=== PATIENT | female | born 1995 | race Caucasian/White ===

== ENCOUNTER → 2020-03-01 11:54 | Outpatient (BNVA) | payer MEDICAID, SELFPAY | PROVIDERS: Family Provider Family Medicine; PCP Family Medicine; Visit Provider Nurse Practitioner Family | DX: M79.642 Pain in left hand (principal) | CPT/HCPCS: 73130 ==

== ENCOUNTER → 2021-08-10 11:30 | Outpatient (BNVA) | payer MEDICAID, SELFPAY | PROVIDERS: Family Provider Family Medicine; PCP Family Medicine; Visit Provider Nurse Practitioner Family | DX: Z20.822 Contact with and (suspected) exposure to COVID-19 (principal) | CPT/HCPCS: 87635 ==

== ENCOUNTER → 2023-05-13 15:38 | Outpatient (BNVA) | payer OTHER, MEDICAID, SELFPAY | PROVIDERS: Family Provider Family Medicine; PCP Family Medicine; Visit Provider Emergency Medicine | DX: M25.532 Pain in left wrist (principal); X50.0XXA Overexertion from strenuous movement or load, initial encounter; Y99.0 Civilian activity done for income or pay | CPT/HCPCS: 73110 ==

== ENCOUNTER 2023-11-23 00:44 | Inpatient (IN) | payer BC, SELFPAY ==
[2023-11-23 00:45] VITALS: BP 117/91; PULSE 77; RESP 16; TEMP 36.4; O2SAT 99; BMI 31.8
--- NOTE | 2023-11-23 01:04 | ED.C_ITS ---
HPI - Psych 2 General: Chief Complaint: Psychiatric Symptoms Stated Complaint: DEPRESSION Time Seen by Provider: 11/23/23 00:49 Source: patient and EMS Mode of arrival: EMS Limitations: no limitations History of Present Illness: 28-year-old female states she is feeling a lot of stressors with her at work states she has had severe depression from this she denies any suicidal ideations but states that she needs to get some help due to her severe depression. Associated symptoms: Reports depression; Deny homicidal ideation or suicidal ideation Review of Systems 2 Const: Denies: fever(s), chills, body aches or change in appetite ENMT: Denies: throat pain or dental pain Card: Denies: chest pain Resp: Denies: dyspnea GI: Denies: abdominal pain, nausea, vomiting or diarrhea Musc: Denies: neck pain or back pain Skin/Breast: Denies: rash Neuro: Denies: headache(s) Psych: Reports: depression; Denies: suicidal ideation or homicidal ideation [facility] ED 2 Female Reproductive History: Date of last menstrual period: 11/08/23 S pontaneous abortions: No Physical Exam 2 Const: COMMON NORMALS: no acute distress, patient oriented x3 and healthy appearing HENMT: COMMON NORMALS: normocephalic and atraumatic HEAD & SCALP: n ormocephalic and atraumatic Neck/C-Spine: COMMON NORMALS: full ROM and supple Chest: COMMONS NORMALS: normal inspection of the chest Resp: COMMON NORMALS: normal respiratory effort Extremity: COMMON NORMALS: normal to inspection and full ROM Neuro: COMMON NORMALS: patient oriented x3, moves all extremities and no focal motor deficits Psych: COMMON NORMALS: mental status grossly normal, Normal thought process present and cooperative MOOD & AFFECT: Yes depressed mood THOUGHT PROCESS: Normal thought process present Skin: COMMON NORMALS: no rashes or lesions noted and no wounds GENERAL SKIN EXAM: no rashes or lesions noted Course 2 Vital Signs: Vital signs: Vital Signs Temperature 97.5 F L 11/23/23 00:45 Pulse Rate 77 11/23/23 00:45 Respiratory Rate 16 11/23/23 00:45 Blood Pressure 117/91 11/23/23 00:45 Pulse Oximetry 99 11/23/23 00:45 Oxygen Delivery Me thod Room Air 11/23/23 00:45 MDM - Psych Medical Decision Making Patient presents for severe depression she has no SI or HI but voluntarily wants to be admitted to the [facility] to get some help spoke to the psychiatry she is medically cleared will admit at this time Medical Records I reviewed the patient's medical records. Lab Data I reviewed the patient's lab results. 11/23/23 01:31 11/23/23 01:31 Laboratory Results WBC 9.83 10^3/uL (3.29-11.43) 11/23/23 01:31 RBC 4.53 10^6/uL (3.85-5.65) 11/23/23 01:31 Hgb 13.60 g/dL (11.27-16.99) 11/23/23 01:31 Hct 39.7 % (36-47) 11/23/23 01:31 MCV 87.6 fl (85-98) 11/23/23 01:31 MCH 30.0 pg (27-33) 11/23/23 01: MCHC 34.3 g/dL (30-55) 11/23/23 01:31 RDW 13.1 % (12.1-15.1) 11/23/23 01:31 Plt Count 266 10^3/cmm (157-399) 11/23/23 01:31 MPV 8.3 fL (7.4-10.4) 11/23/23 01:31 Neut % (Auto) 61.8 % 11/23/23 01: Lymph % (Auto) 28.4 % 11/23/23 01:31 [place] % (Auto) 7.8 % 11/23/23 01: Eos % (Auto) 1.7 % 11/23/23 01:31 Baso % (Auto) 0.1 % 11/23/23 01:31 Neut # (Auto) 6.07 10^3/uL (1.8-7.7) 11/23/23 01:31 Lymph # (Auto) 2.8 10^3/uL (0.8-4.8) 11/23/23 01:31 [place] # (Auto) 0.8 10^3/uL (0.2-0.9) 11/23/23 01:31 Eos # (Auto) 0.2 10^3/uL (0.0-0.8) 11/23/23 01:31 Baso # (Auto) 0.0 10^3/uL (0.0-0.1) 11/23/23 01:31 Nucleated RBC % (auto) 0 % 11/23/23 01:31 Nucleated RBCs # 0.0 /100WBC 11/23/23 01:31 Sodium 144 mmol/L (136-145) 11/23/23 01:31 Potassium 3.5 mmol/L (3.5-5.1) 11/23/23 01:31 Chloride 109 mmol/L (98-107) H 11/23/23 01:31 Carbon Dioxide 25 mmol/L (22-29) 11/23/23 01:31 Anion Gap 13.5 (5-19) 11/23/23 01:31 BUN 12 mg/dL (6-20) 11/23/23 01:31 Creatinine 0.7 mg/dL (0.5-0.9) 11/23/23 01:31 GFR Calculation 98.9 mL/min (90-130) 11/23/23 01:31 Glucose 96 mg/dL (65-115) 11/23/23 01:31 Calculated Osmolality 298 mOsm/kg (285-295) H 11/23/23 01:31 Calcium 9.2 mg/dL (8.5-10.5) 11/23/23 01:31 Total Bilirubin 0.6 mg/dL (0.15-1.2) 11/23/23 01:31 AST 13 U/L (0-32) 11/23/23 01:31 ALT 16 U/L (0-33) 11/23/23 01:31 Alkaline Phosphatase 88 U/L (35-105) 11/23/23 01:31 Total Protein 7.1 g/dL (6.6-8.7) 11/23/23 01:31 Albumin 4.1 g/dL (3.5-5.2) 11/23/23 01:31 Globulin 3.0 g/dL (1.3-4.6) 11/23/23 01:31 HCG, Qual Negative (Negative) 11/23/23 01:12 Salicylates < 0.3 mg/dL (3-10) L 11/23/23 01:31 Urine Opiates Screen Negative ng/mL (Negative) 11/23/23 01:12 Acetaminophen < 5.0 ug/mL (10-30) L 11/23/23 01:31 Ur Barbiturates Screen Negative ng/mL (Negative) 11/23/23 01:12 Ur Phencyclidine Scrn Negative ng/mL (Negative) 11/23/23 01:12 Ur Amphetamines Screen Negative ng/mL (Negative) 11/23/23 01:12 U Benzodiazepines Scrn Negative ng/mL (Negative) 11/23/23 01:12 Urine Cocaine Screen Negative ng/mL (Negative) 11/23/23 01:12 U Marijuana (THC) Screen Positive ng/mL (Negative) H 11/23/23 01:12 Ethyl Alcohol < 10 mg/dL (0-10) 11/23/23 01:31 No radiology studies performed this visit Discharge Plan Discharge Admit Provider: Nnamdi Haines Condition: Stable Coding Level of Care Code ED Uniformer for Tobias Ayala
[2023-11-23 01:27] LABS: HCG Qualitative Urine. Negative (Negative)
[2023-11-23 01:28] LABS: Amphetamines Screen Urine Negative (Negative); Barbiturates Screen Urine Negative (Negative); Benzodiazepines Screen Urine Negative (Negative); Cocaine Screen Urine Negative (Negative); Opiate Screen Urine Negative (Negative); PCP Screen Urine Negative (Negative); THC Screen Urine Positive (Negative)
[2023-11-23 01:36] LABS: Basophils % 0.1 %; Eosinophils # 0.2 10^3/uL (0.0-0.8); Eosinophils % 1.7 %; Hematocrit 39.7 % (36-47); Lymphocytes # 2.8 10^3/uL (0.8-4.8); Lymphocytes % 28.4 %; Mean Corpuscular HGB Conc 34.3 g/dL (30-55); Mean Corpuscular Volume 87.6 fl (85-98); Mean Platelet Volume 8.3 fL (7.4-10.4); Monocytes # 0.8 10^3/uL (0.2-0.9); Monocytes % 7.8 %; Neutrophils # 6.07 10^3/uL (1.8-7.7); Neutrophils % 61.8 %; Nucleated Red Blood Cells % 0 %; Platelet Count 266 10^3/cmm (157-399); Red Blood Count 4.53 10^6/uL (3.85-5.65); Red Cell Distribution Width 13.1 % (12.1-15.1); White Blood Count 9.83 10^3/uL (3.29-11.43)
[2023-11-23 01:55] LABS: Alanine Aminotransferase 16 U/L (0-33); Albumin Level 4.1 g/dL (3.5-5.2); Alkaline Phosphatase 88 U/L (35-105); Anion Gap 13.5 (5-19); Aspartate Amino Transferase 13 U/L (0-32); Blood Urea Nitrogen 12 mg/dL (6-20); Calcium 9.2 mg/dL (8.5-10.5); Carbon Dioxide 25 mmol/L (22-29); Chloride 109 mmol/L (98-107); Creatinine Clr Calc Pharmacy 119.9945; Glomerular Filtration Rate 98.9 mL/min (90-130); Glucose 96 mg/dL (65-115); Osmolality Calculated 298 mOsm/kg (285-295); Potassium 3.5 mmol/L (3.5-5.1); Sodium 144 mmol/L (136-145); Total Bilirubin 0.6 mg/dL (0.15-1.2); Total Protein 7.1 g/dL (6.6-8.7)
[2023-11-23 01:56] LABS: Acetaminophen < 5.0 ug/mL (10-30); Alcohol Level < 10 mg/dL (0-10); Salicylate < 0.3 mg/dL (3-10)
[2023-11-23 02:22] VITALS: BP 160/79; PULSE 69; RESP 17; TEMP 36.5; O2SAT 95
--- NOTE | 2023-11-23 03:17 | PC.NURSE ---
Admission Note pt arrived to NPU by wheelchair at 0221 on a voluntary hold . Pt states that she is here because her coworkers have been starting rumors about her and treating her badly. Pt also stated that she thinks her is cheating in her and whenever she tries to tell someone about it, no one believes her. Pt stated that everyone she knows started acting weird after her grandfather 2 months ago and she doesn't know why. Pt stated that with everyone treating her badly it is causing her to become depressed and suicidal at times. Pt was dressed into NPU scrubs and skin assessment showed no abnormalities. Pt denies SI/HI/AVH at this time. Pt was orientated to the unit and is now observed resting in bed quietly with eyes closed. Behavioral monitoring continues
[2023-11-23 06:00] VITALS: RESP 15
[2023-11-23 14:00] VITALS: BP 123/86; PULSE 89; RESP 17; TEMP 36.7; O2SAT 97
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
[2023-11-23] MEDS: trazodone 50 mg Tablet PO (20:06)
[2023-11-23 21:28] VITALS: BP 108/75; PULSE 94; RESP 17; TEMP 36.6; O2SAT 98
[2023-11-24 06:00] VITALS: BP 112/70; PULSE 82; RESP 16; TEMP 36.6; O2SAT 96
[2023-11-24] MEDS: ARIPiprazole 10 mg Tablet PO (08:20)
[2023-11-24] MEDS: nicotine 2 mg Gum BUCCAL (08:20)
--- NOTE | 2023-11-24 09:18 | PC.NURSE ---
PT IS VERY EXCITABLE THIS AM AND OVERLY HAPPY, STATED EVERYTHING IS GREAT,, I'M ALL BETTER. PT DENIES SI/HI AND AVH AT THIS TIME. RATES ANXIETY AND DEPRESSION 0/10. STATES SHE SLEPT WELL LAST NIGHT. DENIES PAIN. GOAL FOR THE DAY IS GET BACK TO WORK,, GET BACK TO MY LIFE AND GET IT ALL BACK IN ORDER. ALL QUESTIONS ANSWERED AND SUPPORT VOICED.
[2023-11-24 13:59] VITALS: BP 131/80; PULSE 107; RESP 16; TEMP 36.6; O2SAT 97
--- NOTE | 2023-11-24 15:02 | P.NPUPN_ITS ---
Subjective NPU 2 Subjective: 28-year-old female with no prior inpatie nt hospitalizations admitted with increased paranoia and ideas of reference with genetic loading for schizophrenia. Patient had reported feeling significantly better and reported that she was ready to return back to work. The patient had stated that she had forgiven her for his alleged had affair. She had stated that she would simply ignore what her coworkers and customers were saying about her. Patient reported no side effects from her medication. She had not reported any sleep disturbance. She had denied any mood symptoms today. The patient reported no changes in appetite. Mental Status Exam 2 MSE Comments: Patient is a casually dressed heavyset female who appeared her stated age with fair eye contact and normal gait. She was alert and oriented x 3. There was no evidence of any abnormal involuntary motor movements tics or tremors appreciated. There was mild psychomotor retardation. Her speech was monotone in regards to quality with normal volume and rate. Her thought process was linear, logical and goal-directed. Her thought content showed no evidence of active homicidal or suicidal ideation. There was continued evidence of paranoia and ideas of reference. She did not appear to be responding to internal stimuli. Her mood was described as better. Her affect appeared brighter. Her insight is poor. Her judgment is limited. Her impulse control appeared guarded. Her recent and remote memory appeared grossly intact. Vitals/I&O/Wt Last Vital Signs Temp 97.8 F 11/24/23 13:59 Pulse 107 H 11/24/23 13:59 Resp 16 11/24/23 13:59 BP 131/80 11/24/23 13:59 Pulse Ox 97 11/24/23 13:59 O2 Del Method Room Air 11/24/23 13:59 Weight last 48 hrs Weight 81.647 kg Data NPU 11/23/23 01:31 11/23/23 01:31 A&P Assessment and plan (1) Schizophreniform disorder: (2) Marijuana abuse: (3) Depression, unspecified: Plan 28-year-old female presenting with a 3-month history of paranoia, ideas of reference, and depression with significant genetic loading for schizophrenia. The patient would likely benefit from initiation of medication here with no current outpatient treatment and acute onset. #1.? Engage patient in individual milieu and group therapy. #2?? Recommend sober living treatment at the highest level of care to which the patient is willing to commit #3??? Continue abilify 10mg daily with improvement appreciated after two doses but still showing evidence of paranoia and ideas of reference. #4?? TO-15 minute checks? #5?? Will attempt to gather collateral information Involuntary Hold Information 2 96 Hour Hold: 96 Hour Involuntary Admission: No Attestations NPU 2 Medical Necessity Statement*: Inpatient hospitalization is medically necessary and deemed to ?be ?the clinically appropriate intervention ?at this time.? We will monitor/initiate medications and make changes as indicated.? The patient?s likely length of stay 3-5 days. Coding Level of Care Code Acute Code for [facility] Fwd Diagnoses Schizophreniform disorder F20.81 Marijuana abuse F12.10 Depression, unspecified F32.A
[2023-11-24 20:00] VITALS: BP 120/65; PULSE 89; RESP 18; TEMP 36.9; O2SAT 98
[2023-11-24] MEDS: hyDROXYzine 25 mg Capsule 50 MG PO (21:18)
[2023-11-24] MEDS: trazodone 50 mg Tablet PO (21:18)
[2023-11-24 22:00] VITALS: BP 108/75; PULSE 94; RESP 17; TEMP 36.6; O2SAT 98
[2023-11-25 06:00] VITALS: BP 119/72; PULSE 90; RESP 16; TEMP 36.7; O2SAT 100
[2023-11-25] MEDS: ARIPiprazole 10 mg Tablet PO (08:29)
[2023-11-25 14:00] VITALS: BP 107/57; PULSE 114; RESP 17; TEMP 36.7; O2SAT 95
--- NOTE | 2023-11-25 16:52 | P.NPUPN_ITS ---
Subjective NPU 2 Subjective: Patient presented today reporting she is doing okay. She continues to be very focused on discharge per staff reports and direct observation. We discussed her desire to be discharged but concerns regarding continued paranoia as she reflects on the behaviors she displayed in the past weeks. She continued to endorse paranoia about people at work but was reporting less paranoia about her . We discussed the risks, benefits and alternatives of increasing her Abilify to 15 mg p.o. daily and she understood and agreed to proceed as is documented in this note. She denied any side effects or medications. Mental Status Exam 2 MSE Comments: Patient is a casually dressed obese female who appeared her stated age with fair eye contact and normal gait. She was alert and oriented x 3. There was no evidence of any abnormal involuntary motor movements tics or tremors appreciated. There was mild psychomotor retardation. Her speech was monotone in regards to quality with normal volume and rate. Her thought process was linear, logical and goal-directed. Her thought content showed no evidence of active homicidal or suicidal ideation. There was continued evidence of paranoia and ideas of reference. She did not appear to be responding to internal stimuli. Her mood was described as better. Her affect appeared brighter. Her insight is poor. Her judgment is limited. Her impulse control appeared limited. Her recent and remote memory appeared grossly intact. She is alert and oriented x 3. Vitals/I&O/Wt Last Vital Signs Temp 98.1 F 11/25/23 14:00 Pulse 114 H 11/25/23 14:00 Resp 17 11/25/23 14:00 BP 107/57 11/25/23 14:00 Pulse Ox 95 11/25/23 14:00 O2 Del Method Room Air 11/25/23 14:00 Data NPU 11/23/23 01:31 11/23/23 01:31 A&P Assessment and plan (1) Schizophreniform disorder: (2) Marijuana abuse: (3) Depression, unspecified: Plan 28-year-old female presenting with a 3-month history of paranoia, ideas of reference, and depression with significant genetic loading for schizophrenia. The patient would likely benefit from initiation of medication here with no current outpatient treatment and acute onset. #1.? Engage patient in individual milieu and group therapy. #2?? Recommend sober living treatment at the highest level of care to which the patient is willing to commit #3??? Continue abilify 10mg daily with improvement appreciated after two doses but still showing evidence of paranoia and ideas of reference. Increase to 15 mg. #4?? TO-15 minute checks? #5?? Will attempt to gather collateral information Involuntary Hold Information 2 96 Hour Hold: 96 Hour Involuntary Admission: No Attestations NPU 2 Medical Necessity Statement*: Inpatient hospitalization is medically necessary and deemed to ?be ?the clinically appropriate intervention ?at this time.? We will monitor/initiate medications and make changes as indicated.? The patient?s likely length of stay 3-5 days. Coding Level of Care Code Acute Code for [facility] Fwd Diagnoses Schizophreniform disorder F20.81 Marijuana abuse F12.10 Depression, unspecified F32.A
--- NOTE | 2023-11-25 18:25 | PC.NURSE ---
NEW ORDERS RECEIVED FROM DR. LEONARDO TO INCREASE ABILIFY TO 15 MG. INCREASE TO START IN AM.
[2023-11-25 20:10] VITALS: BP 124/83; PULSE 108; RESP 18; TEMP 36.6; O2SAT 97
[2023-11-25] MEDS: trazodone 50 mg Tablet PO (21:24)
[2023-11-26 06:00] VITALS: BP 116/80; PULSE 92; RESP 18; TEMP 36.8; O2SAT 98
--- NOTE | 2023-11-26 07:19 | P.NPUPN_ITS ---
Subjective NPU 2 Subjective: Patient presented today reporting that she was feeling all right. She continues to be really focused and hopeful about discharge to the detriment of working to explore the delusional thinking she had prior and trying to create 2 categories 1 work related memories and the other family and related memories and trying to say that the ones about her family were clearly related to disturbed thinking but still holding onto the idea that her paranoia about work is well- founded. She has tolerated the increase in Abilify and denies any side effects of the medication. We talked about seeing where she is with symptoms on Tuesday to begin consideration of discharge. Mental Status Exam 2 MSE Comments: This is an obese white female in hospital scrubs with adequate grooming and eye contact. There was no evidence of any abnormal involuntary motor movements tics or tremors appreciated. There was mild psychomotor retardation. She was cooperative with exam in mild distress. Speech was somewhat monotone but more normal rate and volume. Mood described as better, affect appeared brighter. Thought process was more organized. Her thought content showed no evidence of active homicidal or suicidal ideation. There was continued evidence of paranoia and ideas of reference. She did not appear to be responding to internal stimuli. Attention and concentration were intact and memory was unreliable secondary to delusions, but none were formally tested. He is alert and oriented times person and place. Her insight is poor. Her judgment is limited. Her impulse control appeared limited. Vitals/I&O/Wt Last Vital Signs Temp 98.2 F 11/26/23 06:00 Pulse 92 11/26/23 06:00 Resp 18 11/26/23 06:00 BP 116/80 11/26/23 06:00 Pulse Ox 98 11/26/23 06:00 O2 Del Method Room Air 11/25/23 14:00 Data NPU 11/23/23 01:31 11/23/23 01:31 A&P Assessment and plan (1) Schizophreniform disorder: (2) Marijuana abuse: (3) Depression, unspecified: Plan 28-year-old female presenting with a 3-month history of paranoia, ideas of reference, and depression with significant genetic loading for schizophrenia. The patient would likely benefit from initiation of medication here with no current outpatient treatment and acute onset. #1.? Engage patient in individual milieu and group therapy. #2?? Recommend sober living treatment at the highest level of care to which the patient is willing to commit #3??? Continue abilify 10mg daily with improvement appreciated after two doses but still showing evidence of paranoia and ideas of reference. Increased to 15 mg.. #4?? TO-15 minute checks? #5?? Discussed length of stay with and he was in agreement that given her history and her seemingly poor insight that we should be conservative and cautious with discharge. Involuntary Hold Information 2 96 Hour Hold: 96 Hour Involuntary Admission: No Attestations NPU 2 Medical Necessity Statement*: Inpatient hospitalization is medically necessary and deemed to ?be ?the clinically appropriate intervention ?at this time.? We will monitor/initiate medications and make changes as indicated.? The patient?s likely length of stay 2-4 days. Coding Level of Care Code Acute Code for [facility] Fwd Diagnoses Schizophreniform disorder F20.81 Marijuana abuse F12.10 Depression, unspecified F32.A
[2023-11-26] MEDS: ARIPiprazole 10 mg Tablet 15 MG PO (09:07)
[2023-11-26 13:19] VITALS: BP 111/75; PULSE 98; RESP 17; TEMP 36.7; O2SAT 98
[2023-11-26 19:41] VITALS: BP 117/80; PULSE 115; RESP 16; TEMP 36.7; O2SAT 98
[2023-11-26] MEDS: trazodone 50 mg Tablet PO (20:24)
[2023-11-27 06:00] VITALS: BP 118/79; PULSE 100; RESP 16; TEMP 36.9; O2SAT 97
[2023-11-27] MEDS: ARIPiprazole 10 mg Tablet 15 MG PO (08:50)
[2023-11-27 13:24] VITALS: BP 109/75; PULSE 103; RESP 17; TEMP 36.9; O2SAT 94
--- NOTE | 2023-11-27 14:19 | P.NPUPN_ITS ---
Subjective NPU 2 Subjective: Patient presented today reporting that she is doing okay. For the first time she seemed able to reflect on the circumstance of her admission and identified that even the thoughts about her coworkers likely represented delusions and paranoia that were related to her psychotic symptoms and not to actual situations that existed. She reports that the Abilify is working well and that she feels positive about being in the hospital. She denied any side effects to the medication. Mental Status Exam 2 MSE Comments: This is an obese white female in hospital scrubs with adequate grooming and eye contact. There was no evidence of any abnormal involuntary motor movements tics or tremors appreciated. There was mild psychomotor retardation. She was cooperative with exam in mild distress. Speech was somewhat monotone but more normal rate and volume. Mood described as better, affect appeared brighter. Thought process was more organized. Her thought content showed no evidence of active homicidal or suicidal ideation. She denied any delusions and appeared her paranoia and ideas of reference were resolving. She did not appear to be responding to internal stimuli. Attention and concentration were intact and memory was more reliable, but none were formally tested. She is alert and oriented times x 3. Insight and judgment are improving. Her impulse control appeared to be improving. Vitals/I&O/Wt Last Vital Signs Temp 98.4 F 11/27/23 13:24 Pulse 103 H 11/27/23 13:24 Resp 17 11/27/23 13:24 BP 109/75 11/27/23 13:24 Pulse Ox 94 11/27/23 13:24 O2 Del Method Room Air 11/27/23 06:00 Weight last 48 hrs Weight 79.197 kg Data NPU 11/23/23 01:31 11/23/23 01:31 A&P Assessment and plan (1) Schizophreniform disorder: (2) Marijuana abuse: (3) Depression, unspecified: Plan 28-year-old female presenting with a 3-month history of paranoia, ideas of reference, and depression with significant genetic loading for schizophrenia. The patient would likely benefit from initiation of medication here with no current outpatient treatment and acute onset. #1.? Engage patient in individual milieu and group therapy. #2?? Recommend sober living treatment at the highest level of care to which the patient is willing to commit #3??? Continue abilify 10mg daily with improvement appreciated after two doses but still showing evidence of paranoia and ideas of reference. Increased to 15 mg.. #4?? TO-15 minute checks? #5?? Discussed length of stay with and he was in agreement that given her history and her seemingly poor insight that we should be conservative and cautious with discharge. Involuntary Hold Information 2 96 Hour Hold: 96 Hour Involuntary Admission: No Attestations NPU 2 Medical Necessity Statement*: Inpatient hospitalization is medically necessary and deemed to ?be ?the clinically appropriate intervention ?at this time.? We will monitor/initiate medications and make changes as indicated.? The patient?s likely length of stay 1-3 days. Coding Level of Care Code Acute Code for [facility] Fwd Diagnoses Schizophreniform disorder F20.81 Marijuana abuse F12.10 Depression, unspecified F32.A
[2023-11-27 19:58] VITALS: BP 120/86; PULSE 106; RESP 18; O2SAT 96
[2023-11-27] MEDS: trazodone 50 mg Tablet PO (20:43)
[2023-11-28 06:00] VITALS: BP 107/74; PULSE 78; RESP 18; TEMP 36.7; O2SAT 96
[2023-11-28] MEDS: ARIPiprazole 10 mg Tablet 15 MG PO (09:34)
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
[2023-11-28 11:32] VITALS: BP 107/74; PULSE 78; RESP 18; TEMP 36.7; O2SAT 96
== END 2023-11-28 12:28 | disposition home or self-care (01) | DRG 885 ==
LOC: ER 01:31 → NP 01:53
PROVIDERS: Admitting Provider Psychiatry & Neurology Psychiatry; Emergency Provider Emergency Medicine; PCP Family Medicine; Visit Provider Psychiatry & Neurology Psychiatry
DX: F20.81 Schizophreniform disorder (principal); F32.A Depression, unspecified; F12.10 Cannabis abuse, uncomplicated; F43.9 Reaction to severe stress, unspecified; Z63.4 Disappearance and death of family member; Z62.810 Personal history of physical and sexual abuse in childhood
CPT/HCPCS: 36415; 80053; 80306; 80307; 81025; 85025; 97150; 97165; 99285

== ENCOUNTER → 2025-01-29 16:05 | Outpatient (BNVA) | payer OTHER, SELFPAY | PROVIDERS: PCP Family Medicine; Visit Provider Psychiatry & Neurology Psychiatry | DX: Z79.899 Other long term (current) drug therapy (principal) | CPT/HCPCS: 80053; 80061; 83036; 84443; 85025 ==